=== PATIENT | male | born 1955 | race Caucasian/White ===

== ENCOUNTER 2018-01-15 21:44 | Inpatient (IN) | payer MEDICARE ==
[~2018-01-15] VITALS: Ht 175.3 cm; Wt 68.4 kg
[2018-01-15 22:00] VITALS: BP 230/112
[2018-01-15] MEDS ORDERED: ASPI81 PO (23:26)
[2018-01-15] MEDS ORDERED: SPIR25 PO (23:26)
[2018-01-15] MEDS ORDERED: LOSA50TA37 PO (23:26)
[2018-01-15] MEDS ORDERED: CARV12 PO (23:26)
[2018-01-15] MEDS ORDERED: FURO40 PO (23:26)
[2018-01-15] MEDS ORDERED: CARVEDILOL 12.5 MG TABLET PO ONE (23:30)
[2018-01-15] MEDS ORDERED: ACETAMINOPHEN 325 MG TABLET PO PRN (23:30)
[2018-01-15] MEDS ORDERED: LOSARTAN POTASSIUM 50 MG TABLET PO ONE (23:30)
[2018-01-15] MEDS ORDERED: SPIRONOLACTONE 25 MG TABLET PO ONE (23:30)
[2018-01-15] MEDS ORDERED: FUROSEMIDE 20 MG TABLET PO ONE (23:30)
[2018-01-15] MEDS ORDERED: CARVEDILOL 12.5 MG TABLET PO SCH (23:45)
[2018-01-15 23:54] VITALS: BP 163/94
[2018-01-16] MEDS ORDERED: ONDANSETRON HCL 4 MG/2 ML VIAL IVP PRN
[2018-01-16] MEDS ORDERED: 0.9% SODIUM CHLORIDE 10 ML SYRINGE IVP PRN
[2018-01-16] MEDS ORDERED: ACETAMINOPHEN 325 MG TABLET PO PRN
[2018-01-16] MEDS: OxyCODONE HCL/ACETAMINOPHEN 5-325 MG TABLET PO PRN (00:05)
[2018-01-16] MEDS: MORPHINE SULFATE 4 MG/ML SYRINGE IVP PRN ×5 (01:21→23:31)
[2018-01-16 05:05] VITALS: BP 174/86
[2018-01-16] MEDS: HYDROCODONE/ACETAMINOPHEN 5-325 MG TABLET PO PRN ×2 (06:31→21:34)
[2018-01-16 06:43] VITALS: BP 198/101
[2018-01-16 07:01] LABS: BASOPHILS % (AUTO) 2.4 % (0.0-2.0); EOSINOPHILS % (AUTO) 0.4 % (1.0-6.0); HEMATOCRIT 21.6 % (41-53); HEMOGLOBIN 7.4 g/dL (13.5-17.5); LYMPHOCYTES % (AUTO) 11.3 % (22.0-44.0); MEAN CORPUSCULAR HEMOGLOBIN 32.1 pg (26.0-34.0); MEAN CORPUSCULAR HGB CONC 34.4 G/dL (31.0-37.0); MEAN CORPUSCULAR VOLUME 93 fL (80-100); MONOCYTES # (AUTO) 0.8 K/uL (0.1-1.0); MONOCYTES % (AUTO) 9.6 % (2.0-9.0); NEUTROPHILS # (AUTO) 6.5 K/uL (1.8-7.7); NEUTROPHILS % (AUTO) 76.3 % (40.0-70.0); PLATELET COUNT (AUTO) 429 K/uL (150-450); RED BLOOD CELL COUNT(AUTO) 2.31 MIL/uL (4.50-5.90); RED CELL DISTRIBUTION WIDTH 20.1 % (11.5-14.5)
[2018-01-16 07:10] LABS: PROTHROMBIN TIME 10.4 SEC (9.4-11.6)
[2018-01-16] MEDS ORDERED: MINO2.5 PO (07:20)
[2018-01-16 07:48] LABS: ALBUMIN 2.6 g/dL (3.4-5.0); BILIRUBIN,TOTAL 0.2 mg/dL (0.1-1.0); CALCIUM, TOTAL 9.2 mg/dL (8.8-10.5); MAGNESIUM 2.4 mg/dL (1.80-2.40); POTASSIUM 4.4 mmol/L (3.5-5.1); THYROID STIMULATING HORMONE 1.21 uIU/mL (0.36-3.74); TOTAL PROTEIN, SERUM 6.8 g/dL (6.4-8.2)
[2018-01-16 08:31] VITALS: BP 153/80
[2018-01-16 08:33] LABS: PROSTATE SPECIFIC ANTIGEN 0.52 ng/mL (0.00-4.00)
[2018-01-16] MEDS: DOCUSATE SODIUM 100 MG CAPSULE PO SCH ×2 (08:45→21:34)
[2018-01-16] MEDS: MINOXIDIL 2.5 MG TABLET PO SCH ×3 (08:45→21:34)
[2018-01-16] MEDS: PANTOPRAZOLE SODIUM 40 MG DR TABLET PO SCH (08:47)
[2018-01-16] MEDS: ASPIRIN 81 MG CHEWABLE TABLET PO SCH (08:48)
[2018-01-16] MEDS ORDERED: FUROSEMIDE 40 MG TABLET PO SCH (09:00)
[2018-01-16] MEDS ORDERED: CARVEDILOL 12.5 MG TABLET PO SCH (09:00)
[2018-01-16] MEDS ORDERED: SPIRONOLACTONE 25 MG TABLET PO SCH (09:00)
[2018-01-16] MEDS ORDERED: LOSARTAN POTASSIUM 50 MG TABLET PO SCH (09:00)
[2018-01-16 10:47] LABS: % IRON SATURATION 28.9 % (30-44)
[2018-01-16 11:31] VITALS: BP 148/70
[2018-01-16 15:30] VITALS: BP 157/77
[2018-01-16] MEDS: FUROSEMIDE 40 MG/4 ML VIAL IVP SCH (16:59)
[2018-01-16 19:10] VITALS: BP 162/80
[2018-01-16] MEDS: SODIUM BICARBONATE 650 MG TABLET PO SCH (21:34)
[2018-01-16] MEDS: HydrALAZINE HCL 20 MG/ML VIAL IVP PRN (21:35)
[2018-01-17] VITALS (7 sets, daily range): BP systolic 132–168; BP diastolic 73–88
[2018-01-17] MEDS: HYDROCODONE/ACETAMINOPHEN 5-325 MG TABLET PO PRN ×2 (03:25→19:32)
[2018-01-17 06:39] LABS: BASOPHILS % (AUTO) 0.3 % (0.0-2.0); EOSINOPHILS % (AUTO) 0.6 % (1.0-6.0); HEMATOCRIT 21.3 % (41-53); HEMOGLOBIN 7.2 g/dL (13.5-17.5); LYMPHOCYTES # (AUTO) 1.1 K/uL (1.0-4.8); LYMPHOCYTES % (AUTO) 14.2 % (22.0-44.0); MEAN CORPUSCULAR HEMOGLOBIN 31.7 pg (26.0-34.0); MEAN CORPUSCULAR HGB CONC 33.9 G/dL (31.0-37.0); MEAN CORPUSCULAR VOLUME 94 fL (80-100); MONOCYTES # (AUTO) 0.7 K/uL (0.1-1.0); MONOCYTES % (AUTO) 9.8 % (2.0-9.0); NEUTROPHILS # (AUTO) 5.6 K/uL (1.8-7.7); NEUTROPHILS % (AUTO) 75.1 % (40.0-70.0); PLATELET COUNT (AUTO) 429 K/uL (150-450); RED BLOOD CELL COUNT(AUTO) 2.28 MIL/uL (4.50-5.90); RED CELL DISTRIBUTION WIDTH 20.3 % (11.5-14.5)
[2018-01-17 07:29] LABS: ALBUMIN 2.4 g/dL (3.4-5.0); BILIRUBIN,TOTAL 0.1 mg/dL (0.1-1.0); CALCIUM, TOTAL 9.2 mg/dL (8.8-10.5); CREATININE 6.57 mg/dL (0.60-1.30); MAGNESIUM 2.1 mg/dL (1.80-2.40); PHOSPHORUS 5.8 mg/dL (2.5-4.9); POTASSIUM 4.8 mmol/L (3.5-5.1); TOTAL PROTEIN, SERUM 5.7 g/dL (6.4-8.2)
[2018-01-17] MEDS: DOCUSATE SODIUM 100 MG CAPSULE PO SCH ×2 (07:58→19:32)
[2018-01-17] MEDS: OxyCODONE HCL/ACETAMINOPHEN 5-325 MG TABLET PO PRN ×3 (07:58→23:10)
[2018-01-17] MEDS: SODIUM BICARBONATE 650 MG TABLET PO SCH ×2 (07:58→19:32)
[2018-01-17] MEDS: ASPIRIN 81 MG CHEWABLE TABLET PO SCH (07:58)
[2018-01-17] MEDS: FUROSEMIDE 40 MG/4 ML VIAL IVP SCH (07:58)
[2018-01-17] MEDS: PANTOPRAZOLE SODIUM 40 MG DR TABLET PO SCH (07:59)
[2018-01-17] MEDS: MINOXIDIL 2.5 MG TABLET PO SCH ×3 (07:59→19:32)
[2018-01-17] MEDS: EPOETIN ALFA 10,000 UNITS/ML VIAL SQ SCH (09:39)
[2018-01-17] MEDS: SODIUM BICARBONATE 75 MEQ in SODIUM CHLORIDE 0.45% 1,000 ML IV SCH (09:39)
[2018-01-17] MEDS: AmLODIPine BESYLATE 5 MG TABLET PO SCH (09:39)
[2018-01-17] MEDS: MORPHINE SULFATE 4 MG/ML SYRINGE IVP PRN (11:27)
[2018-01-18] VITALS (9 sets, daily range): BP systolic 140–190; BP diastolic 76–96
[2018-01-18] MEDS: HYDROCODONE/ACETAMINOPHEN 5-325 MG TABLET PO PRN ×3 (03:45→21:54)
[2018-01-18 05:19] LABS: CREATININE,URINE 48.6 mg/dL (30.0-125.0)
[2018-01-18 05:24] LABS: CREATININE,SERUM FOR CRCL 6.57 mg/dL (0.60-1.30)
[2018-01-18 07:05] LABS: BASOPHILS % (AUTO) 0.3 % (0.0-2.0); EOSINOPHILS % (AUTO) 0.7 % (1.0-6.0); LYMPHOCYTES # (AUTO) 1.3 K/uL (1.0-4.8); LYMPHOCYTES % (AUTO) 18.1 % (22.0-44.0); MEAN CORPUSCULAR HEMOGLOBIN 30.8 pg (26.0-34.0); MEAN CORPUSCULAR HGB CONC 33.1 G/dL (31.0-37.0); MEAN CORPUSCULAR VOLUME 93 fL (80-100); MONOCYTES # (AUTO) 0.8 K/uL (0.1-1.0); MONOCYTES % (AUTO) 11.9 % (2.0-9.0); NEUTROPHILS # (AUTO) 4.8 K/uL (1.8-7.7); PLATELET COUNT (AUTO) 366 K/uL (150-450)
[2018-01-18 07:12] LABS: ALANINE AMINOTRANSFERASE 19 U/L (12-78); ALBUMIN 2.3 g/dL (3.4-5.0); ALKALINE PHOSPHATASE 49 U/L (46-116); ANION GAP 12 mmol/L (8-16); ASPARTATE AMINOTRANSFERASE 11 U/L (15-37); BILIRUBIN,TOTAL 0.2 mg/dL (0.1-1.0); CALCIUM, TOTAL 9.1 mg/dL (8.8-10.5); CARBON DIOXIDE 20 mmol/L (22-29); CHLORIDE 100 mmol/L (98-107); GLOMERULAR FILTR. RATE CALC 9 mL/min (>60); GLUCOSE,RANDOM 93 mg/dL (70-110); POTASSIUM 4.6 mmol/L (3.5-5.1); SODIUM SERUM 132 mmol/L (136-145); TOTAL PROTEIN, SERUM 6.2 g/dL (6.4-8.2)
[2018-01-18 07:36] LABS: UREA NITROGEN, BLOOD 108 mg/dL (7-18)
[2018-01-18 07:45] LABS: HEMOGLOBIN 6.8 g/dL (13.5-17.5)
[2018-01-18 07:46] LABS: HEMATOCRIT 20.4 % (41-53)
[2018-01-18] MEDS: FUROSEMIDE 40 MG/4 ML VIAL IVP SCH (08:08)
[2018-01-18] MEDS: MINOXIDIL 2.5 MG TABLET PO SCH ×3 (08:08→21:55)
[2018-01-18] MEDS: ASPIRIN 81 MG CHEWABLE TABLET PO SCH (08:08)
[2018-01-18] MEDS: AmLODIPine BESYLATE 5 MG TABLET PO SCH (08:08)
[2018-01-18] MEDS: DOCUSATE SODIUM 100 MG CAPSULE PO SCH ×2 (08:08→21:54)
[2018-01-18] MEDS: PANTOPRAZOLE SODIUM 40 MG DR TABLET PO SCH (08:08)
[2018-01-18] MEDS: SODIUM BICARBONATE 650 MG TABLET PO SCH ×2 (08:08→21:55)
[2018-01-18] MEDS: SODIUM BICARBONATE 75 MEQ in SODIUM CHLORIDE 0.45% 1,000 ML IV SCH (08:14)
[2018-01-18 09:17] LABS: C-REACTIVE PROTEIN QUANT < 0.05 mg/dL (0.00-0.30)
[2018-01-18] MEDS: MORPHINE SULFATE 4 MG/ML SYRINGE IVP PRN ×4 (10:05→22:03)
[2018-01-18] MEDS ORDERED: HEPARIN SODIUM,PORCINE 1,000 UNITS/ML 10 ML VIAL ONE (10:17)
[2018-01-18] MEDS ORDERED: LIDOCAINE HCL/PF 1% 30 ML VIAL ONE (10:17)
[2018-01-18] MEDS ORDERED: HEPARIN SODIUM 1000 UNITS/NS 500 ML ONE (10:18)
[2018-01-18] MEDS ORDERED: FentaNYL CITRATE-PF 100 MCG/2 ML VIAL ONE (10:34)
[2018-01-18] MEDS ORDERED: CeFAZolin 1 GM/DEXTROSE 50 ML IV ONE ×2 (10:35→12:00)
[2018-01-18] MEDS ORDERED: MIDAZOLAM HCL 2 MG/2 ML VIAL ONE ×2 (10:35→12:22)
[2018-01-18] MEDS ORDERED: FLUMAZENIL 0.1 MG/ML 5 ML VIAL IVP ONE (11:46)
[2018-01-18] MEDS ORDERED: NALOXONE HCL 0.4 MG/ML VIAL ONE (11:46)
[2018-01-18] MEDS ORDERED: MIDAZOLAM HCL 2 MG/2 ML VIAL IVP ONE (12:25)
[2018-01-18] MEDS ORDERED: FentaNYL CITRATE-PF 100 MCG/2 ML VIAL IVP ONE (12:25)
[2018-01-18] MEDS: HydrALAZINE HCL 20 MG/ML VIAL IVP PRN (21:54)
[2018-01-19] VITALS (7 sets, daily range): BP systolic 144–165; BP diastolic 80–106
[2018-01-19] MEDS: OxyCODONE HCL/ACETAMINOPHEN 5-325 MG TABLET PO PRN ×2 (00:12→22:28)
[2018-01-19] MEDS: MORPHINE SULFATE 4 MG/ML SYRINGE IVP PRN ×5 (02:04→23:54)
[2018-01-19] MEDS: HYDROCODONE/ACETAMINOPHEN 5-325 MG TABLET PO PRN ×2 (04:00→11:23)
[2018-01-19] MEDS: HydrALAZINE HCL 20 MG/ML VIAL IVP PRN (05:19)
[2018-01-19 06:07] LABS: BASOPHILS % (AUTO) 0.1 % (0.0-2.0); EOSINOPHILS % (AUTO) 0.8 % (1.0-6.0); LYMPHOCYTES # (AUTO) 1.2 K/uL (1.0-4.8); LYMPHOCYTES % (AUTO) 12.5 % (22.0-44.0); MEAN CORPUSCULAR HEMOGLOBIN 30.8 pg (26.0-34.0); MEAN CORPUSCULAR HGB CONC 33.9 G/dL (31.0-37.0); MEAN CORPUSCULAR VOLUME 91 fL (80-100); MONOCYTES # (AUTO) 1.1 K/uL (0.1-1.0); MONOCYTES % (AUTO) 12.1 % (2.0-9.0); NEUTROPHILS # (AUTO) 6.9 K/uL (1.8-7.7); NEUTROPHILS % (AUTO) 74.5 % (40.0-70.0); PLATELET COUNT (AUTO) 336 K/uL (150-450); RED BLOOD CELL COUNT(AUTO) 2.27 MIL/uL (4.50-5.90); RED CELL DISTRIBUTION WIDTH 19.6 % (11.5-14.5)
[2018-01-19 06:49] LABS: HEMATOCRIT 20.6 % (41-53)
[2018-01-19 07:06] LABS: ALBUMIN 2.4 g/dL (3.4-5.0); BILIRUBIN,TOTAL 0.2 mg/dL (0.1-1.0); CALCIUM, TOTAL 9.1 mg/dL (8.8-10.5); CREATININE 4.25 mg/dL (0.60-1.30); MAGNESIUM 1.8 mg/dL (1.80-2.40); PHOSPHORUS 4.5 mg/dL (2.5-4.9); TOTAL PROTEIN, SERUM 6.2 g/dL (6.4-8.2)
[2018-01-19] MEDS: MINOXIDIL 2.5 MG TABLET PO SCH ×3 (08:09→20:26)
[2018-01-19] MEDS: DOCUSATE SODIUM 100 MG CAPSULE PO SCH ×2 (08:09→20:27)
[2018-01-19] MEDS: FUROSEMIDE 40 MG/4 ML VIAL IVP SCH (08:09)
[2018-01-19] MEDS: SODIUM BICARBONATE 650 MG TABLET PO SCH (08:10)
[2018-01-19] MEDS: PANTOPRAZOLE SODIUM 40 MG DR TABLET PO SCH (08:10)
[2018-01-19] MEDS: AmLODIPine BESYLATE 10 MG TABLET PO SCH (08:12)
[2018-01-19] MEDS: EPOETIN ALFA 10,000 UNITS/ML VIAL SQ SCH (08:12)
[2018-01-19] MEDS ORDERED: MANNITOL 25%-12.5 GM/50 ML VIAL IVP PRN (14:30)
[2018-01-19] MEDS ORDERED: HEPARIN SODIUM,PORCINE 1,000 UNITS/ML VIAL IVP ONE ×2 (14:30)
[2018-01-19] MEDS: ZOLPIDEM TARTRATE 5 MG TABLET PO PRN (23:54)
[2018-01-20] VITALS (14 sets, daily range): BP systolic 133–189; BP diastolic 69–97
[2018-01-20] MEDS: MORPHINE SULFATE 4 MG/ML SYRINGE IVP PRN ×5 (05:54→22:15)
[2018-01-20 06:27] LABS: BASOPHILS % (AUTO) 0.5 % (0.0-2.0); EOSINOPHILS % (AUTO) 1.2 % (1.0-6.0); LYMPHOCYTES % (AUTO) 11.8 % (22.0-44.0); MEAN CORPUSCULAR HGB CONC 34.3 G/dL (31.0-37.0); MEAN CORPUSCULAR VOLUME 90 fL (80-100); MONOCYTES # (AUTO) 1.3 K/uL (0.1-1.0); MONOCYTES % (AUTO) 14.8 % (2.0-9.0); NEUTROPHILS # (AUTO) 6.1 K/uL (1.8-7.7); NEUTROPHILS % (AUTO) 71.7 % (40.0-70.0); PLATELET COUNT (AUTO) 299 K/uL (150-450); RED BLOOD CELL COUNT(AUTO) 2.11 MIL/uL (4.50-5.90); RED CELL DISTRIBUTION WIDTH 19.9 % (11.5-14.5)
[2018-01-20 06:48] LABS: ALBUMIN 2.4 g/dL (3.4-5.0); BILIRUBIN,TOTAL 0.2 mg/dL (0.1-1.0); CALCIUM, TOTAL 8.9 mg/dL (8.8-10.5); CREATININE 3.1 mg/dL (0.60-1.30); MAGNESIUM 1.6 mg/dL (1.80-2.40); POTASSIUM 3.9 mmol/L (3.5-5.1); TOTAL PROTEIN, SERUM 5.9 g/dL (6.4-8.2)
[2018-01-20 06:57] LABS: HEMOGLOBIN 6.5 g/dL (13.5-17.5)
[2018-01-20] MEDS: HYDROCODONE/ACETAMINOPHEN 5-325 MG TABLET PO PRN ×2 (07:55→15:23)
[2018-01-20] MEDS: FUROSEMIDE 40 MG/4 ML VIAL IVP SCH (07:55)
[2018-01-20] MEDS: PANTOPRAZOLE SODIUM 40 MG DR TABLET PO SCH (07:55)
[2018-01-20] MEDS: MINOXIDIL 2.5 MG TABLET PO SCH ×3 (07:56→20:05)
[2018-01-20] MEDS: AmLODIPine BESYLATE 10 MG TABLET PO SCH (07:56)
[2018-01-20] MEDS: DOCUSATE SODIUM 100 MG CAPSULE PO SCH ×2 (07:56→20:03)
[2018-01-20] MEDS ORDERED: MAGNESIUM SULFATE 2 GM in DEXTROSE 5%-WATER 50 ML IV PRN (10:15)
[2018-01-20] MEDS ORDERED: MAGNESIUM OXIDE 400 MG TABLET PO PRN (10:15)
[2018-01-20] MEDS ORDERED: MAGNESIUM SULFATE 4 GM/WATER 100 ML IV PRN (10:15)
[2018-01-20] MEDS ORDERED: SODIUM CHLORIDE 0.9% 250 ML IV ONE (10:48)
[2018-01-20] MEDS: OxyCODONE HCL/ACETAMINOPHEN 5-325 MG TABLET PO PRN ×2 (11:30→20:06)
[2018-01-20 19:34] LABS: HEMOGLOBIN 7.2 g/dL (13.5-17.5)
[2018-01-20 19:47] LABS: HEMATOCRIT 20.8 % (41-53)
[2018-01-21] MEDS: ZOLPIDEM TARTRATE 5 MG TABLET PO PRN (00:31)
[2018-01-21] MEDS: MORPHINE SULFATE 4 MG/ML SYRINGE IVP PRN ×5 (02:16→21:23)
[2018-01-21 04:59] VITALS: BP 160/88
[2018-01-21] MEDS: OxyCODONE HCL/ACETAMINOPHEN 5-325 MG TABLET PO PRN (05:04)
[2018-01-21 06:09] VITALS: BP 152/91
[2018-01-21 07:00] LABS: BASOPHILS % (AUTO) 0.4 % (0.0-2.0); EOSINOPHILS % (AUTO) 3.7 % (1.0-6.0); HEMOGLOBIN 7.2 g/dL (13.5-17.5); LYMPHOCYTES # (AUTO) 0.9 K/uL (1.0-4.8); LYMPHOCYTES % (AUTO) 8.6 % (22.0-44.0); MEAN CORPUSCULAR HEMOGLOBIN 31.1 pg (26.0-34.0); MEAN CORPUSCULAR HGB CONC 34.4 G/dL (31.0-37.0); MEAN CORPUSCULAR VOLUME 90 fL (80-100); MONOCYTES # (AUTO) 1.2 K/uL (0.1-1.0); MONOCYTES % (AUTO) 11.6 % (2.0-9.0); NEUTROPHILS # (AUTO) 7.7 K/uL (1.8-7.7); NEUTROPHILS % (AUTO) 75.7 % (40.0-70.0); PLATELET COUNT (AUTO) 283 K/uL (150-450); RED CELL DISTRIBUTION WIDTH 20.5 % (11.5-14.5)
[2018-01-21 07:04] VITALS: BP 165/95
[2018-01-21 07:26] LABS: ALBUMIN 2.5 g/dL (3.4-5.0); BILIRUBIN,TOTAL 0.3 mg/dL (0.1-1.0); CALCIUM, TOTAL 9.1 mg/dL (8.8-10.5); CREATININE 3.8 mg/dL (0.60-1.30); MAGNESIUM 1.7 mg/dL (1.80-2.40); PHOSPHORUS 3.8 mg/dL (2.5-4.9); POTASSIUM 4.2 mmol/L (3.5-5.1); TOTAL PROTEIN, SERUM 6.2 g/dL (6.4-8.2)
[2018-01-21] MEDS: MINOXIDIL 2.5 MG TABLET PO SCH ×3 (09:00→21:23)
[2018-01-21] MEDS: DOCUSATE SODIUM 100 MG CAPSULE PO SCH ×2 (09:33→21:23)
[2018-01-21] MEDS: PANTOPRAZOLE SODIUM 40 MG DR TABLET PO SCH (09:33)
[2018-01-21] MEDS: HYDROCODONE/ACETAMINOPHEN 5-325 MG TABLET PO PRN ×3 (09:33→17:31)
[2018-01-21] MEDS: FUROSEMIDE 40 MG/4 ML VIAL IVP SCH (09:34)
[2018-01-21] MEDS: AmLODIPine BESYLATE 10 MG TABLET PO SCH (09:34)
[2018-01-21] MEDS ORDERED: SODIUM CHLORIDE 0.9% 2,000 ML IV ONE (12:20)
[2018-01-21] MEDS: HydrALAZINE HCL 25 MG TABLET PO SCH ×2 (15:39→21:23)
[2018-01-21 16:18] VITALS: BP 182/92
[2018-01-21] MEDS ORDERED: HEPARIN SODIUM,PORCINE 5,000 UNITS/ML VIAL SQ ONE (17:39)
[2018-01-21 19:20] VITALS: BP 155/96
[2018-01-21 23:59] VITALS: BP 128/94
[2018-01-22] VITALS (13 sets, daily range): BP systolic 124–165; BP diastolic 76–112
[2018-01-22] MEDS: MORPHINE SULFATE 4 MG/ML SYRINGE IVP PRN ×7 (00:47→23:59)
[2018-01-22] MEDS: HydrALAZINE HCL 20 MG/ML VIAL IVP PRN (02:35)
[2018-01-22] MEDS: HYDROCODONE/ACETAMINOPHEN 5-325 MG TABLET PO PRN (02:36)
[2018-01-22 06:55] LABS: BASOPHILS % (AUTO) 0.3 % (0.0-2.0); EOSINOPHILS % (AUTO) 3.1 % (1.0-6.0); HEMATOCRIT 23.2 % (41-53); LYMPHOCYTES # (AUTO) 0.9 K/uL (1.0-4.8); LYMPHOCYTES % (AUTO) 7.6 % (22.0-44.0); MEAN CORPUSCULAR HEMOGLOBIN 31.1 pg (26.0-34.0); MEAN CORPUSCULAR HGB CONC 34.6 G/dL (31.0-37.0); MEAN CORPUSCULAR VOLUME 90 fL (80-100); MONOCYTES # (AUTO) 0.9 K/uL (0.1-1.0); MONOCYTES % (AUTO) 7.7 % (2.0-9.0); NEUTROPHILS # (AUTO) 9.4 K/uL (1.8-7.7); NEUTROPHILS % (AUTO) 81.3 % (40.0-70.0); PLATELET COUNT (AUTO) 306 K/uL (150-450); RED BLOOD CELL COUNT(AUTO) 2.57 MIL/uL (4.50-5.90); RED CELL DISTRIBUTION WIDTH 20.4 % (11.5-14.5)
[2018-01-22] MEDS ORDERED: AMIODARONE HCL 50 MG in DEXTROSE 5%-WATER 97 ML IV ONE (07:30)
[2018-01-22] MEDS ORDERED: DIGOXIN 250 MCG/ML 2 ML AMP IVP ONE (07:30)
[2018-01-22] MEDS ORDERED: AMIODARONE HCL 360 MG in DEXTROSE 5%-WATER 242.8 ML IV ONE (07:30)
[2018-01-22] MEDS ORDERED: SODIUM CHLORIDE 0.9% 500 ML IV ONE (07:54)
[2018-01-22] MEDS: FUROSEMIDE 40 MG/4 ML VIAL IVP SCH (08:11)
[2018-01-22] MEDS: PANTOPRAZOLE SODIUM 40 MG DR TABLET PO SCH (08:12)
[2018-01-22] MEDS: DOCUSATE SODIUM 100 MG CAPSULE PO SCH ×2 (08:12→20:10)
[2018-01-22] MEDS: MINOXIDIL 2.5 MG TABLET PO SCH ×3 (08:15→20:10)
[2018-01-22] MEDS: AmLODIPine BESYLATE 10 MG TABLET PO SCH (09:48)
[2018-01-22] MEDS: EPOETIN ALFA 10,000 UNITS/ML VIAL SQ SCH (09:48)
[2018-01-22] MEDS: HydrALAZINE HCL 25 MG TABLET PO SCH ×2 (09:48→20:10)
[2018-01-22 10:27] LABS: ALBUMIN 2.6 g/dL (3.4-5.0); BILIRUBIN,TOTAL 0.3 mg/dL (0.1-1.0); CALCIUM, TOTAL 9.4 mg/dL (8.8-10.5); CREATININE 3.2 mg/dL (0.60-1.30); MAGNESIUM 1.6 mg/dL (1.80-2.40); PHOSPHORUS 3.4 mg/dL (2.5-4.9); POTASSIUM 3.9 mmol/L (3.5-5.1); TOTAL PROTEIN, SERUM 6.7 g/dL (6.4-8.2)
[2018-01-22] MEDS: TraMADol HCL 50 MG TABLET PO SCH ×2 (11:31→20:10)
[2018-01-22] MEDS: APIXABAN 2.5 MG TABLET PO SCH ×2 (13:13→20:10)
[2018-01-22] MEDS ORDERED: AMIODARONE HCL 540 MG in DEXTROSE 5%-WATER 239.2 ML IV ONE (13:30)
[2018-01-22] MEDS: AMIODARONE HCL 200 MG TABLET PO SCH ×2 (17:09→20:09)
[2018-01-22] MEDS: ZOLPIDEM TARTRATE 5 MG TABLET PO PRN (20:10)
[2018-01-23] VITALS (9 sets, daily range): BP systolic 136–158; BP diastolic 79–99
[2018-01-23] MEDS: MORPHINE SULFATE 4 MG/ML SYRINGE IVP PRN ×5 (04:29→22:31)
[2018-01-23 06:38] LABS: BASOPHILS % (AUTO) 0.3 % (0.0-2.0); EOSINOPHILS % (AUTO) 4.3 % (1.0-6.0); HEMATOCRIT 21.1 % (41-53); HEMOGLOBIN 7.1 g/dL (13.5-17.5); LYMPHOCYTES # (AUTO) 0.5 K/uL (1.0-4.8); LYMPHOCYTES % (AUTO) 4.5 % (22.0-44.0); MEAN CORPUSCULAR HEMOGLOBIN 30.8 pg (26.0-34.0); MEAN CORPUSCULAR HGB CONC 33.7 G/dL (31.0-37.0); MEAN CORPUSCULAR VOLUME 92 fL (80-100); MONOCYTES # (AUTO) 1.1 K/uL (0.1-1.0); MONOCYTES % (AUTO) 9.4 % (2.0-9.0); NEUTROPHILS # (AUTO) 9.6 K/uL (1.8-7.7); NEUTROPHILS % (AUTO) 81.5 % (40.0-70.0); PLATELET COUNT (AUTO) 264 K/uL (150-450); RED CELL DISTRIBUTION WIDTH 21.1 % (11.5-14.5)
[2018-01-23] MEDS ORDERED: SODIUM CHLORIDE 0.9% 4,000 ML IV ONE (06:55)
[2018-01-23] MEDS ORDERED: AMIODARONE HCL 750 MG in DEXTROSE 5%-WATER 485 ML IV SCH (07:21)
[2018-01-23 07:28] LABS: ALBUMIN 2.5 g/dL (3.4-5.0); BILIRUBIN,TOTAL 0.4 mg/dL (0.1-1.0); CALCIUM, TOTAL 9.2 mg/dL (8.8-10.5); CREATININE 4.06 mg/dL (0.60-1.30); MAGNESIUM 1.8 mg/dL (1.80-2.40); POTASSIUM 4.3 mmol/L (3.5-5.1); TOTAL PROTEIN, SERUM 6.4 g/dL (6.4-8.2)
[2018-01-23] MEDS ORDERED: SODIUM CHLORIDE 0.9% 2,000 ML IV ONE (08:42)
[2018-01-23 10:03] LABS: APPEARANCE,URINE CLEAR (CLEAR); BILIRUBIN,URINE NEGATIVE (NEGATIVE); GLUCOSE, URINE (UA) NEGATIVE (NEGATIVE); KETONES,URINE NEGATIVE (NEGATIVE); LEUKOCYTE ESTERASE ,URINE NEGATIVE (NEGATIVE); NITRATE,URINE NEGATIVE (NEGATIVE); OCCULT BLOOD,URINE NEGATIVE (NEGATIVE); PROTEIN,URINE SEE CONFIRM (NEGATIVE); UROBILINOGEN,URINE 0.2 mg/dL (<=1.0)
[2018-01-23 10:40] LABS: SULFOSALICYLIC ACID,URINE 3+ (Negative)
[2018-01-23 10:41] LABS: BACTERIA,URINE None Seen /HPF (None Seen); RBC,URINE None Seen /HPF (0-2); SQUAMOUS EPITHELIAL CELL,UR Moderate /LPF (None Seen); WBC,URINE None Seen /HPF (0-5)
[2018-01-23] MEDS: FUROSEMIDE 40 MG/4 ML VIAL IVP SCH (12:19)
[2018-01-23] MEDS: DOCUSATE SODIUM 100 MG CAPSULE PO SCH ×2 (12:19→20:03)
[2018-01-23] MEDS: AMIODARONE HCL 200 MG TABLET PO SCH ×3 (12:20→20:03)
[2018-01-23] MEDS: APIXABAN 2.5 MG TABLET PO SCH ×2 (12:20→20:05)
[2018-01-23] MEDS: TraMADol HCL 50 MG TABLET PO SCH ×2 (12:20→20:03)
[2018-01-23] MEDS: PANTOPRAZOLE SODIUM 40 MG DR TABLET PO SCH (12:20)
[2018-01-23] MEDS: MINOXIDIL 2.5 MG TABLET PO SCH ×3 (12:21→20:05)
[2018-01-23] MEDS: AmLODIPine BESYLATE 10 MG TABLET PO SCH (15:51)
[2018-01-23] MEDS: HydrALAZINE HCL 25 MG TABLET PO SCH ×2 (15:51→20:03)
[2018-01-23] MEDS ORDERED: HEPARIN SODIUM,PORCINE 1,000 UNITS/ML VIAL IVP ONE (17:19)
[2018-01-23] MEDS: ZOLPIDEM TARTRATE 5 MG TABLET PO PRN (20:03)
[2018-01-24] VITALS (7 sets, daily range): BP systolic 143–166; BP diastolic 74–84
[2018-01-24] MEDS: MORPHINE SULFATE 4 MG/ML SYRINGE IVP PRN ×5 (02:34→15:28)
[2018-01-24 06:38] LABS: BASOPHILS % (AUTO) 0.3 % (0.0-2.0); EOSINOPHILS % (AUTO) 2.9 % (1.0-6.0); HEMATOCRIT 21.1 % (41-53); HEMOGLOBIN 7.3 g/dL (13.5-17.5); LYMPHOCYTES # (AUTO) 0.4 K/uL (1.0-4.8); LYMPHOCYTES % (AUTO) 4.2 % (22.0-44.0); MEAN CORPUSCULAR HEMOGLOBIN 31.4 pg (26.0-34.0); MEAN CORPUSCULAR HGB CONC 34.4 G/dL (31.0-37.0); MEAN CORPUSCULAR VOLUME 91 fL (80-100); MONOCYTES # (AUTO) 1.1 K/uL (0.1-1.0); MONOCYTES % (AUTO) 10.1 % (2.0-9.0); NEUTROPHILS # (AUTO) 8.7 K/uL (1.8-7.7); NEUTROPHILS % (AUTO) 82.5 % (40.0-70.0); PLATELET COUNT (AUTO) 273 K/uL (150-450); RED BLOOD CELL COUNT(AUTO) 2.32 MIL/uL (4.50-5.90); RED CELL DISTRIBUTION WIDTH 20.4 % (11.5-14.5)
[2018-01-24 06:59] LABS: ALBUMIN 2.5 g/dL (3.4-5.0); BILIRUBIN,TOTAL 0.3 mg/dL (0.1-1.0); CALCIUM, TOTAL 9.4 mg/dL (8.8-10.5); CREATININE 3.27 mg/dL (0.60-1.30); MAGNESIUM 1.7 mg/dL (1.80-2.40); POTASSIUM 4.4 mmol/L (3.5-5.1); TOTAL PROTEIN, SERUM 6.7 g/dL (6.4-8.2)
[2018-01-24] MEDS: FUROSEMIDE 40 MG/4 ML VIAL IVP SCH (07:55)
[2018-01-24] MEDS: PANTOPRAZOLE SODIUM 40 MG DR TABLET PO SCH (07:55)
[2018-01-24] MEDS: DOCUSATE SODIUM 100 MG CAPSULE PO SCH (07:55)
[2018-01-24] MEDS: EPOETIN ALFA 10,000 UNITS/ML VIAL SQ SCH (07:55)
[2018-01-24] MEDS: APIXABAN 2.5 MG TABLET PO SCH (07:55)
[2018-01-24] MEDS: TraMADol HCL 50 MG TABLET PO SCH (07:56)
[2018-01-24] MEDS: AMIODARONE HCL 200 MG TABLET PO SCH (07:56)
[2018-01-24] MEDS: AmLODIPine BESYLATE 10 MG TABLET PO SCH (07:56)
[2018-01-24] MEDS: MINOXIDIL 2.5 MG TABLET PO SCH ×2 (07:56→16:25)
[2018-01-24] MEDS: HydrALAZINE HCL 25 MG TABLET PO SCH (09:36)
[2018-01-24] MEDS ORDERED: APIX2.5T PO (09:46)
[2018-01-24] MEDS ORDERED: AMIO200T44 PO (09:46)
[2018-01-24] MEDS ORDERED: DSS100 PO (09:47)
[2018-01-24] MEDS ORDERED: AMLO-512 PO (09:47)
[2018-01-24] MEDS ORDERED: EPOE20002 SQ (09:48)
[2018-01-24] MEDS ORDERED: HYDR25TA84 PO (09:49)
[2018-01-24] MEDS ORDERED: FURO40I IV (09:49)
[2018-01-24] MEDS ORDERED: MINO2.5 PO (09:50)
[2018-01-24] MEDS ORDERED: PANT40TA25 PO (09:51)
[2018-01-24] MEDS ORDERED: ACET-784 PO (09:52)
[2018-01-24] MEDS ORDERED: TRAM50TA4 PO (09:52)
[2018-01-24] MEDS ORDERED: HYDR-309 PO (09:53)
[2018-01-24] MEDS ORDERED: HYDR20I IVP (09:54)
[2018-01-24] MEDS ORDERED: MORP2CAR IV (09:55)
[2018-01-24] MEDS ORDERED: ZOLP5 PO (09:57)
[2018-01-24] MEDS ORDERED: AMIODARONE HCL 200 MG TABLET PO SCH (10:00)
[2018-01-24] MEDS ORDERED: MAGNESIUM HYDROXIDE SUSPENSION 30 ML UDCUP PO PRN (11:45)
[2018-01-24] MEDS ORDERED: SODIUM PHOS/SODIUM BIPHOS 133 ML ENEMA PR PRN (11:45)
[2018-01-24] MEDS: HYDROCODONE/ACETAMINOPHEN 5-325 MG TABLET PO PRN (17:13)
== END 2018-01-24 17:20 | DRG 673 ==
LOC: 5S 22:00 → 5N 01-21 18:45
PROVIDERS: ADMIT Internal Medicine; ATTEND Internal Medicine
PROC: 5A1D70Z Performance of Urinary Filtration, Intermittent, Less than 6 Hours Per Day (ICD-10-PCS; principal; 2018-01-18)
PROC: 30233N1 Transfusion of Nonautologous Red Blood Cells into Peripheral Vein, Percutaneous Approach (ICD-10-PCS; 2018-01-18)
PROC: 0JH63XZ Insertion of Tunneled Vascular Access Device into Chest Subcutaneous Tissue and Fascia, Percutaneous Approach (ICD-10-PCS; 2018-01-18)
PROC: 02HV33Z Insertion of Infusion Device into Superior Vena Cava, Percutaneous Approach (ICD-10-PCS; 2018-01-18)
PROC: B518ZZA Fluoroscopy of Superior Vena Cava, Guidance (ICD-10-PCS; 2018-01-18)
PROC: B543ZZA Ultrasonography of Right Jugular Veins, Guidance (ICD-10-PCS; 2018-01-18)
PROC: 5A1D70Z Performance of Urinary Filtration, Intermittent, Less than 6 Hours Per Day (ICD-10-PCS; 2018-01-19)
PROC: 5A1D70Z Performance of Urinary Filtration, Intermittent, Less than 6 Hours Per Day (ICD-10-PCS; 2018-01-21)
PROC: 5A1D70Z Performance of Urinary Filtration, Intermittent, Less than 6 Hours Per Day (ICD-10-PCS; 2018-01-23)
DX: N17.9 Acute kidney failure, unspecified (principal); I46.9 Cardiac arrest, cause unspecified; I13.2 Hypertensive heart and chronic kidney disease with heart failure and with stage 5 chronic kidney disease, or end stage renal disease; I50.33 Acute on chronic diastolic (congestive) heart failure; E87.2 Acidosis; N18.6 End stage renal disease; I49.5 Sick sinus syndrome; I48.91 Unspecified atrial fibrillation; M25.551 Pain in right hip; K40.90 Unilateral inguinal hernia, without obstruction or gangrene, not specified as recurrent; D63.1 Anemia in chronic kidney disease; E78.5 Hyperlipidemia, unspecified; I45.9 Conduction disorder, unspecified; G89.29 Other chronic pain; R22.9 Localized swelling, mass and lump, unspecified; I35.0 Nonrheumatic aortic (valve) stenosis; Z96.641 Presence of right artificial hip joint; Z99.2 Dependence on renal dialysis; Z79.899 Other long term (current) drug therapy; Z79.82 Long term (current) use of aspirin; Z91.013 Allergy to seafood; Z87.11 Personal history of peptic ulcer disease; Z82.3 Family history of stroke
CPT/HCPCS: 36245; 36561; 72100; 72148; 72195; 73502; 74176; 76000; 76770; 76870; 76937; 76999; 81050; 82575; 83540; 83550; 83735; 84100; 84153; 84156; 84166; 84300; 84443; 84540; 85014; 85018; 86140; 86850; 86900; 86901; 86920; 87340; 90935; 93005; 93306; 93970; 97162; 97530; J0282; J0360; J0690; J0885; J1160; J1644; J1940; J2250; J2270; J2310; J3010; J3490; J7030; J7040; J7050; J7060; P9016